=== PATIENT | male | born 1970 | race Caucasian/White ===

== ENCOUNTER 2017-09-18 02:25 | Observation (INO) ==
[2017-09-18] MEDS ORDERED: SALINE FLUSH 10ml SYRINGE IVF PRN (02:49)
--- NOTE | 2017-09-18 02:51 | Emergency Department Report ---
General Adult HPI - General Chief complaint: Abdominal Pain Stated complaint: sharp lower rt abd pain Time Seen by Provider: 09/18/17 02:41 Source: patient Mode of arrival: ambulatory Limitations: no limitations - History of Present Illness HPI narrative: 47-year-old male presents to the emergency department with the chief complaint of right lower quadrant abdominal pain. He noted onset of symptoms 1 day ago and symptoms have progressed throughout the day. He describes the pain as moderate. Pain is dull. No radiation. He does not note any exacerbating or remitting factors. No other complaints or associated symptoms. He was at home when his symptoms began. Symptoms have been persistent in nature since onset. Patient denies any trauma, travel, poorly prepared food, or recent antibiotic use. He has no other complaints or associated symptoms at this time. - Related Data Home Medications Medication Instructions Recorded Confirmed Docusate Sodium [Stool Softener] 100 mg PO DAILY #0 04/20/11 09/18/17 Escitalopram [Lexapro] 0.5 tab PO DAILY 09/18/17 09/18/17 Meloxicam 15 mg PO DAILY 09/18/17 09/18/17 Allergies Allergy/AdvReac Type Severity Reaction Status Date / Time Sulfa (Sulfonamide Allergy Severe HIVES Verified 09/18/17 05:51 Antibiotics) latex Allergy Intermediate Itching Verified 09/18/17 05:51 Review of Systems Constitutional: Denies: fever, chills Eyes: Denies: eye pain, vision change ENT: Denies: ear pain, throat pain Cardiovascular: Denies: chest pain, palpitations Respiratory: Denies: cough, dyspnea Gastrointestinal: Reports: abdominal pain. Denies: nausea, vomiting, diarrhea Genitourinary: Denies: urgency, dysuria Musculoskeletal: Denies: back pain, arthralgia Integumentary: Denies: erythema, rash Neurological: Denies: headache, numbness Psychiatric: Denies: anxiety, depression Endocrine: Denies: polydipsia, polyuria Hematological/Lymphatic: Denies: easy bruising, lymphadenopathy Allergic/Immunologic: Denies: facial swelling, urticaria PFSH Patient Stated Medical History Migraine Yes Depression Yes Surgical History: Hernia repair Family History: Reviewed and noncontributory. - Social History Smoking status: Never smoker Substance use type: does not use Alcohol intake frequency: does not drink Physical Exam - Limitations Limitations: no limitations - General General appearance: alert, in no apparent distress - Normal Exams: Head:: Normocephalic without trauma Eyes:: Pupils are PERRLA w/ EOMI, No scleral icterus, irritation, or foreign bodies noted ENMT:: No facial trauma, nasal exudates, pharyngeal erythema, or exudates are noted Dental: No fractured, loose, or missing teeth noted Neck:: Full range of motion, without adenopathy, JVD, bruits or thyromegaly Chest/Respirations:: Clear all burgess, with good airflow, and symmetry bilaterally Cardiovascular:: Regular rate and rhythm, without murmur or gallop, Pulses 2+ all extremities, capillary refill, <2 seconds all extremities Abdomen:: Bowel sounds positive (Soft. Moderate right lower quadrant tenderness to palpation without rebound or guarding. No CVAT.), non-distended, no hepatosplenomegaly, masses or bruits noted Lymphatic:: No lymphadenopathy, or lymphedema noted Musculoskeletal:: No tenderness, or deformity noted, good range of motion, all extremities Integumentary:: No rashes, hives, or bruising noted, hair and nails, without abnormality Neurological:: Patient is alert, and oriented, cranial nerves, motor/sensory/ cerebellar, exams w/o gross deficits, to observation Psychiatric:: Patient exhibits, appropriate attention, emotion and affect Course Vital Signs Temperature 98.5 F 09/18/17 02:31 Pulse Rate 94 09/18/17 02:31 Respiratory Rate 18 09/18/17 02:31 Blood Pressure 140/91 H 09/18/17 02:31 Pulse Oximetry 98 09/18/17 02:31 Temperature 98.5 F 09/18/17 02:31 Pulse Rate 80 09/18/17 06:16 Respiratory Rate 16 09/18/17 06:16 Blood Pressure 137/82 09/18/17 06:16 Pulse Oximetry 97 09/18/17 06:16 Medical Decision Making - [facility] Narrative Medical decision making narrative: Labs / imaging were discussed in detail with the patient and family and questions are answered. He is given gentle IV hydration. He is given parental narcotic and antiemetic medication intravenously with improvement of symptoms. He is given Invanz 1 g intravenously. He is discussed with Dr. Wilder of Gen. surgery and accepted to his service for further evaluation and treatment. Patient is admitted to the hospital in improved condition. No further orders from accepting physician who is in agreement with the current plan of management. Patient is made nothing by mouth in the emergency department. - Differential Diagnosis kidney stone, appendicitis, UTI, metabolic disorder - Lab Data Result diagrams: 09/18/17 03:32 09/18/17 03:32 Lab Results 09/18/17 09/18/17 09/18/17 Range/Units 03:32 03:32 04:48 WBC 14.8 H (4.5-11.0) T/MM3 RBC 4.81 (4.50-5.90) M/MM3 Hgb 14.5 (13.5-17.5) GM/DL Hct 42.4 (41-53) % MCV 88.1 (80-100) UM3 MCH 30.1 (26-34) UUG MCHC 34.2 (31-37) GM/DL RDW Std Deviation 41.0 (36.9-50.2) FL Plt Count 188 (130-400) T/MM3 MPV 10.9 (9.4-12.4) UM3 Immature Gran % (Auto) 0.1 (0.0-0.5) % Neut % (Auto) 80.2 H (33-66) % Lymph % (Auto) 11.6 L (23-45) % [place] % (Auto) 6.8 (0-9.0) % Eos % (Auto) 1.0 (0-4) % Baso % (Auto) 0.3 (0-2) % Neut # (Auto) 11.9 H (1.8-7.7) T/MM3 Lymph # (Auto) 1.7 (1-4.8) T/MM3 [place] # (Auto) 1.0 H (0-0.8) T/MM3 Eos # (Auto) 0.2 (0-0.5) T/MM3 Baso # (Auto) 0.0 (0-0.2) T/MM3 Abs Immat Gran (auto) 0.02 (0.00-0.03) T/MM3 Turbidity < 20 (0-20) Sodium 141 (134-144) MEQ/L Potassium 4.0 (3.6-5) MEQ/L Chloride 103 (98-107) MEQ/L Carbon Dioxide 27 (22-30) MEQ/L Anion Gap 11 (5-15) meq/L BUN 17.0 (9-20) MG/DL Creatinine 0.8 (0.8-1.5) mg/dL GFR Calculation 104 BUN/Creatinine Ratio 21 (6-26) RATIO Glucose 103 (75-110) MG/DL Calculated Osmolality 273 (261-280) MOSM/KG Calcium 9.6 (8.4-10.2) MG/DL Total Bilirubin 0.40 (0.20-1.30) MG/DL Icterus Index < 2 (0-7) AST 23 (17-59) U/L ALT 20 (1-50) U/L Alkaline Phosphatase 71 (38-126) U/L Total Protein 7.2 (6.3-8.2) g/dL Albumin 4.4 (3.5-5.0) g/dL Globulin 2.8 (2.4-3.6) G/DL Albumin/Globulin Ratio 1.6 (1.1-2.2) RATIO Lipase 42 (23-300) U/L Specimen Hemolysis < 15 (0-25) Ur Collection Type Urine, void-cc/notcc Urine Color Yellow (YELLOW) Urine Clarity Clear Urine pH 5.5 (5.0-8.0) Ur Specific [place] 1.025 (1.015-1.025) Urine Protein Negative (NEGATIVE) Urine Glucose (UA) Negative (NEGATIVE) Urine Ketones Negative (NEGATIVE) Urine Occult Blood Negative (NEGATIVE) Urine Nitrate Negative (NEGATIVE) Urine Bilirubin Negative (NEGATIVE) Urine Urobilinogen 0.2 (NORMAL) EU/DL Ur Leukocyte Esterase Negative (NEGATIVE) Urinalysis Comment Microscopic not ind. - Radiology Data CT abdomen/pelvis: Acute appendicitis. Associated appendicoliths. No drainable fluid collection. No free air. Disposition Clinical Impression: Acute appendicitis Qualifiers: Acute appendicitis type: other Qualified Code(s): K35.89 - Other acute appendicitis Disposition: 02 To [facility] Condition: Improved Prescriptions: No Action Docusate Sodium [Stool Softener] 100 mg PO DAILY #0 Meloxicam 15 mg PO DAILY Escitalopram [Lexapro] 0.5 tab PO DAILY Referrals: Eric Maher MD [Primary Care Provider] - Time of Disposition: 05:00 - Seen By: physician
[2017-09-18] MEDS ORDERED: ONDANSETRON 4 MG/2 ML INJECTION IVP ONE (04:59)
[2017-09-18] MEDS ORDERED: FentaNYL 100 MCG/2 ML INJECTION IVP ONE (04:59)
[2017-09-18] MEDS ORDERED: ERTAPENEM 1 G in NS 100 ML IV ONE (05:24)
[2017-09-18 06:58] VITALS: BMI 24.0
--- NOTE | 2017-09-18 07:57 | CT Scan Report ---
Indication: RLQ PAIN PROCEDURE: CT abdomen pelvis wo con: Encounter: Initial Comparison: None Technique: Axial CT images were performed through the abdomen and pelvis without intravenous contrast. Coronal and sagittal two-dimensional reformats. Automated Exposure Control and Iterative Reconstruction dose reducing techniques were utilized. Findings: The lung bases are clear. The unenhanced contours of the liver are unremarkable. The gallbladder is normal. The spleen, pancreas and adrenal glands are within normal limits. Small bilateral nonobstructing renal stones. No renal stones. Numerous pelvic phleboliths. Bladder is normal. No free fluid. No evidence of a bowel obstruction. There is what appears to be an enlarged mildly inflamed appendix in the right lower quadrant measuring 1.2 cm in diameter containing an appendicolith best seen on axial image #57 and coronal image #18. Bone windows show no acute findings. No free air or free fluid. Impression: Acute appendicitis. Emergent surgical consultation is recommended. There is a preliminary report by [facility]. .
[2017-09-18] MEDS ORDERED: MORPHINE SULFATE 2mg INJ IVP PRN (09:56)
[2017-09-18] MEDS ORDERED: METOCLOPRAMIDE 10mg/2ml INJECTION IVP PRN (09:56)
[2017-09-18] MEDS ORDERED: ONDANSETRON 4 MG/2 ML INJECTION IVP PRN (09:56)
[2017-09-18] MEDS: LR 1,000 ML IV SCH ×3 (10:30→22:29)
[2017-09-18] MEDS ORDERED: MORPHINE SULFATE 4mg INJECTION IVP PRN (12:45)
[2017-09-18] MEDS ORDERED: BUPIVACAINE 0.25%/EPI 1:200,000 30ml SDV ONE (13:23)
[2017-09-18] MEDS ORDERED: LIDOCAINE 1% (10mg/ml) 30ml SDV INJ ONE (13:23)
--- NOTE | 2017-09-18 14:03 | Anesthesia Preoperative Report ---
Anesthesia Preoperative Record - Date and Time Date: 09/18/17 Preoperative Diagnosis: acute appendicitis Proposed Procedure: lap appy NPO Since Date: 09/17/17 NPO Since Time: 23:00 Allergies/Adverse Reactions: Allergies Allergy/AdvReac Type Severity Reaction Status Date / Time Sulfa (Sulfonamide Allergy Severe HIVES Verified 09/18/17 05:51 Antibiotics) sulfamethoxazole Allergy Severe Hives Verified 09/18/17 07:03 [From Bactrim] trimethoprim [From Bactrim] Allergy Severe Hives Verified 09/18/17 07:03 latex Allergy Intermediate Itching Verified 09/18/17 05:51 - Vital Signs Vital Signs: Temperature 97.5 F 09/18/17 13:29 Pulse Rate 74 09/18/17 13:29 Respiratory Rate 16 09/18/17 13:29 Blood Pressure 141/85 H 09/18/17 13:29 Pulse Oximetry 99 09/18/17 13:29 Height and Weight: Height 1.78 m Weight 76 kg Body Mass Index 24.0 - Medications Inpatient Medications: Current Medications Lactated Ringer's (Lactated Ringers) 1,000 mls @ 100 mls/hr IV .Q10H KASSIDY Last Infusion: 09/18/17 13:25 Dose: 100 mls/hr Metoclopramide HCl (Reglan) 10 mg IVP Q6H PRN Last Admin: 09/18/17 12:33 Dose: 10 mg Morphine Sulfate (Morphine Sulfate Inj) 1 - 2 mg IVP Q3H PRN PRN Reason: Pain Last Admin: 09/18/17 12:48 Dose: 2 mg Ondansetron HCl (Zofran) 4 mg IVP Q6H PRN PRN Reason: Nausea &/or vomiting Sodium Chloride (Iv Flush) 10 - 80 ml IVF PRN PRN PRN Reason: Flushing Last Admin: 09/18/17 05:15 Dose: 10 ml Home Medications: Home Medications Medication Instructions Recorded Confirmed Type Docusate Sodium [Stool Softener] 100 mg PO DAILY #0 04/20/11 09/18/17 History Escitalopram [Lexapro] 0.5 tab PO DAILY 09/18/17 09/18/17 History Meloxicam 15 mg PO DAILY 09/18/17 09/18/17 History - Medical History Respiratory: DENIES: Sleep Apnea Gastrointestional: Reports: Other (constipation) Neuro/Musculoskeletal: Reports: Depression - Surgical History HEENT Surgeries: Reports: Oral Surgery (wisdom) GI Surgery/Treatments: Reports: Hernia Repair, Colonoscopy, Other (hemorrhoid repair) Anesthesia Reactions: None Hx Family Anesthesia Reaction: No - Social History Smoking Status: Never smoker Substance Use Type: does not use Alcohol Intake Frequency: does not drink - Pertinent Findings EKG: Sinus Rhythm - Physical Exam Respiratory Exam: Present: lungs clear, bilateral breath sounds equal Cardiovascular Exam: Present: regular rate and rhythm, no murmur - Airway Assessment Mallampati Score: I TMD: 3 Fingerbreadths Neck Extension: good Overall Assessment: no airway concerns - ASA ASA Score: 1, E - Plan Anesthesia: General Inhalation Gases - Discussion Discussion: Discussed risks/options/alternatives of anesthesia and questions answered. Patient consents. Nursing pain assessment noted. Attestation Statement: Prior to the delivery of any anesthetic medication, I examined the patient, developed the plan, obtained the patient's consent and discussed the risk and benefits of the procedure with the patient/guardian. - Additional Information Seen by Anesthesia: Yes
[2017-09-18] MEDS ORDERED: FentaNYL 250 MCG/5 ML INJECTION ONE (14:16)
[2017-09-18] MEDS ORDERED: ROCURONIUM 50 MG/5 ML INJECTION IVP ONE (14:17)
[2017-09-18] MEDS ORDERED: PROPOFOL 20 ML ONE ×2 (14:17→14:18)
[2017-09-18] MEDS ORDERED: LIDOCAINE 4% Laryng-O-Jet (160mg/4mL) KIT MM ONE (14:17)
[2017-09-18] MEDS ORDERED: DEXAMETHASONE 4 MG/ML INJECTION ONE (14:24)
[2017-09-18] MEDS ORDERED: ONDANSETRON 4 MG/2 ML INJECTION ONE (14:24)
[2017-09-18] MEDS: LIDO 1% 30ml/BUPIV 0.25%-EPI 1:200T 30ml MIXTURE (60ml total) ID ONE (14:34)
[2017-09-18] MEDS ORDERED: AMIODARONE 150 MG in NS 100 ML IV PRN (14:57)
--- NOTE | 2017-09-18 15:36 | General Surgery Procedure Note ---
Date of Procedure: 09/18/17 Surgeon: Roopa Anesthesia: General Inhalation Gases ASA Score: 1, E Postoperative Diagnosis: Acute nonperforated appendicitis Procedure: Lap appy Estimated Blood Loss: See Anesthesia Record.
[2017-09-18] MEDS: FentaNYL 100 MCG/2 ML INJECTION IVP PRN ×2 (15:58→16:07)
--- NOTE | 2017-09-18 16:08 | Anesthesia Postoperative Note ---
- Date and Time Date: 09/18/17 Time: 15:40 - Status Patient Participated in Evaluation: Patient Participated in Person Vital Signs: Temperature 97.3 F 09/18/17 15:23 Pulse Rate 87 09/18/17 16:00 Respiratory Rate 16 09/18/17 16:00 Blood Pressure 136/84 09/18/17 16:00 Pulse Oximetry 99 09/18/17 16:00 Respiratory Function: Airway Patent Cardiovascular Function: Regular Pulse EKG: Sinus Rhythm EKG Ectopy: Occasional PVC Mental Status: Alert and Oriented Pain Intensity: 5 Hydration: IV Infusing Complications During Recover: None Apparent Post Anesthesia Care Notes: Dr. Moreau is speaking with Dr. Maher about a cardiology consult due to frequent PVCs. Pt stable in post op and only having occasional pvc which is the pts normal previuos to surgery. Pt to be on telemetry until consult clears pt. - Follow-Up Instructions Instructions: Per Surgeon
[2017-09-18] MEDS ORDERED: KETOROLAC 30 MG/ML INJECTION IVP PRN (16:43)
--- NOTE | 2017-09-18 17:52 | History and Physical ---
REASON FOR ADMISSION Suspected appendicitis. HISTORY OF PRESENT ILLNESS Jacques is a 47-year-old male who began to have abdominal pain yesterday morning. He stated his pain started across the entire lower abdomen. The pain was sharp and burning in nature. It was constant. By 10:30 last evening, the pain was more intense and so he came to the emergency department. Emergency department workup showed a white blood cell count of 14.8. A CT scan of the abdomen and pelvis was performed and did reveal some periappendiceal inflammation along with a dilated appendix. The patient was given morphine and his pain did improve with the pain medication. Movement still makes the pain worse. The patient does feel like his pain has improved and he is currently hungry. He had received Invanz in the emergency department once the suspicion of appendicitis was raised. PAST MEDICAL HISTORY 1. Depression. 2. Migraine headaches - occasionally. PAST SURGICAL HISTORY 1. Left inguinal hernia repair with mesh - 04/20/[address] Ball. 2. Colonoscopy - 04/10/[address] Eric Maher. Colonoscopy was performed to investigate hematochezia. It was normal except for a large external hemorrhoid. Repeat was recommended in 10 years. ALLERGIES BACTRIM, LATEX. MEDICATIONS The patient's home medications were reviewed. See the admission medication reconciliation. SOCIAL HISTORY The patient is . He and his have four children. He denies any history of tobacco use. He denies alcohol and drug use. FAMILY HISTORY 1. Mother - brain tumor. 2. Father - kidney cancer with metastases to the lungs. 3. Sister - breast cancer, thyroid cancer. 4. Paternal aunt - lung cancer. 5. Paternal grandmother - brain tumor. 6. Paternal aunt - breast cancer. 7. Daughter - diabetes mellitus. REVIEW OF SYSTEMS 10-point review of systems was negative except for History of Present Illness and the following. GENERAL: He has had some chills with this episode. NEUROLOGIC: He reports a current headache. RESPIRATORY: He reports some cough lately. GASTROINTESTINAL: He has had chronic constipation. MUSCULOSKELETAL: He reports some chronic left knee pain. LABORATORY DATA White blood cell count 14.8. IMAGING CT scan the abdomen and pelvis was personally reviewed by me. There is a dilated appendix containing an appendicolith with some surrounding inflammation. PHYSICAL EXAMINATION VITAL SIGNS: Temperature 96.6, pulse 76, blood pressure 126/84, respiratory rate 16, oxygen saturation 95% on room air. GENERAL: The patient is awake and alert. He is lying in bed in no acute distress. HEENT: Sclerae clear. Extraocular muscles intact. NECK: Supple with a midline trachea. No lymphadenopathy or thyromegaly are noted. HEART: Regular rate and rhythm. LUNGS: Clear to auscultation bilaterally. ABDOMEN: Soft, tender in the right lower quadrant with a mild Rovsing's sign. No guarding is noted. No masses or fluid are noted. EXTREMITIES: No clubbing, cyanosis or edema. NEURO: Cranial nerves II-XII are grossly intact. PSYCHIATRIC: Normal mood and affect. IMPRESSION 1. Acute appendicitis. 2. Depression - chronic. PLAN 1. The patient has already received a dose of Invanz. 2. I did discuss management options for acute appendicitis with Jacques and his . I explained that I did not feel that antibiotic treatment alone would be prudent given the presence of the appendicolith. I therefore recommended laparoscopic appendectomy to him. Following discussion of the procedure, he did wish to proceed with the operation. 3. N.p.o. until surgery. 4. IV fluids. PATIENT EDUCATION The details, risks and benefits of laparoscopic appendectomy were discussed with the patient and his . The discussion included, but was not limited to , bleeding, infection, intraabdominal abscess formation possibly requiring interventional radiology drainage or additional procedures, injury to intraabdominal contents requiring repair, possible negative appendectomy, possible conversion to an open procedure, and complications of anesthesia. He voiced understanding and did wish to proceed with the operation today. ANA MARIA
[2017-09-18] MEDS: HYDROCODONE/APAP 5mg/325mg TABLET PO PRN ×2 (18:00→20:15)
[2017-09-19] MEDS: HYDROCODONE/APAP 5mg/325mg TABLET PO PRN ×3 (00:01→13:21)
[2017-09-19] MEDS: LR 1,000 ML IV SCH ×2 (00:13→05:33)
[2017-09-19 04:31] VITALS: RESP 14
[2017-09-19 07:33] VITALS: TEMP 96.4
--- NOTE | 2017-09-19 07:41 | Cardiology Consult Note ---
History of Present Illness Consult date: 09/18/17 Requesting physician: Mir Blas Consult reason: post-op evaluation Chief complaint: abdominal pain History of present illness: Jacques is a 47 year old male patient of Dr. Blas who underwent appendectomy yesterday after presenting to the ED with abdominal pain across the entire lower abdomen which was sharp and burning in nature. CT scan of the abdomen and pelvis revealed some periappendiceal inflammation along with a dilated appendix. During the surgical procedure he had a 5 beat run of nonsustained ventricular tachycardia and Dr. Garay is consulted for further evaluation and we appreciate the consult. He is examined by Dr Garay this morning in his room on the Surgical unit. He reports incisional abdominal pain, but denies nausea and vomiting. 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 He denies palpitations, dizziness, lightheadedness or syncope. Review of Systems - Constitutional Constitutional: Absent: chills, fatigue, fever(s) - EENMT Eyes: Absent: change in vision Balance: Absent: vertigo Mouth/Throat: Absent: sore throat - Cardiovascular Cardiovascular: Absent: chest pain, palpitations, syncope, dyspnea on exertion, orthopnea, edema, heart murmur Rhythm: Absent: abnormal rhythm Vascular: Absent: pedal edema - Respiratory Respiratory: Absent: cough, dyspnea, dyspnea on exertion - Gastrointestinal Gastrointestinal: Present: abdominal pain. Absent: diarrhea, nausea, vomiting - Genitourinary Genitourinary: Absent: dysuria - Integumentary/Breasts Integumentary: Absent: rash - Neurological Neurological: Absent: dizziness - Endocrine Endocrine: Absent: palpitations PFSH Patient Stated Medical History Migraine Yes Sleep Apnea No Other GI Yes: constipation Depression Yes Surgical History: Appendectomy. Hernia repair Family History: Mother - brain tumor. Father - kidney cancer with metastases to the lungs. Sister - breast cancer, thyroid cancer. Paternal aunt - lung cancer. Paternal grandmother - brain tumor. Paternal aunt - breast cancer. Daughter - diabetes mellitus. 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 Current residence: Apartment/Private Home Medications Home Medications Medication Instructions Recorded Confirmed Type Docusate Sodium [Stool Softener] 100 mg PO DAILY #0 04/20/11 09/18/17 History Escitalopram [Lexapro] 0.5 tab PO DAILY 09/18/17 09/18/17 History Meloxicam 15 mg PO DAILY 09/18/17 09/18/17 History Allergies Allergy/AdvReac Type Severity Reaction Status Date / Time Sulfa (Sulfonamide Allergy Severe HIVES Verified 09/18/17 05:51 Antibiotics) sulfamethoxazole Allergy Severe Hives Verified 09/18/17 07:03 [From Bactrim] trimethoprim [From Bactrim] Allergy Severe Hives Verified 09/18/17 07:03 latex Allergy Intermediate Itching Verified 09/18/17 05:51 metoclopramide [From Reglan] AdvReac Severe Tardive Verified 09/18/17 17:14 Dyskinesia Exam Vital signs: Temperature 96.4 F L 09/19/17 07:32 Pulse Rate 96 09/19/17 07:32 Respiratory Rate 14 09/19/17 07:32 Blood Pressure 133/86 09/19/17 07:32 Pulse Oximetry 96 09/19/17 07:32 - Constitutional no acute distress, well nourished, cooperative - Routine HEENT Exam Head: Present: normocephalic ENT: Present: mucous membranes moist - Routine Neck Exam Absent: JVD, carotid bruit - Routine Chest/Breast/Axilla Exam Chest wall: Absent: tenderness - Routine Respiratory Exam Present: CTA bilaterally. Absent: rales, wheezes - Routine Cardiovascular Exam Present: RRR, no murmur - Routine Abdominal Exam Present: soft, non tender - Routine Extremities Exam Present: no edema - Routine Skin Exam Present: intact, dry, warm - Routine Neurological Exam Present: alert, oriented X3 - Routine Psychiatric Exam Present: normal affect, normal thought process Results 09/18/17 03:32 09/18/17 03:32 Intake and Output 09/18/17 09/19/17 09/19/17 22:59 06:59 14:59 Intake Total 975 / 975 750 / 750 Output Total 750 / 750 550 / 550 Balance 225 / 225 200 / 200 Intake: IV 975 / 975 750 / 750 Lr 1,000 ml @ 100 mls/hr IV . 975 / 975 750 / 750 Q10H KASSIDY Rx#:[id number] Output: Urine 600 / 600 550 / 550 Urine Amount (Catheter) 150 / 150 Urethral 150 / 150 Other: Urine Appearance Clear Clear Urine Color Yellow Yellow Weight 167 lb 8.821 oz Patient Weight 09/20/17 06:59 Weight 167 lb 8.821 oz - Imaging and Cardiology Imaging & Cardiology Narrative: Date of Exam: 09/18/17 Ordering Provider: Bigg Hope DO Type of Exam(s): CT abdomen pelvis wo con Reason for Exam(s): RLQ PAIN Indication: RLQ PAIN PROCEDURE: CT abdomen pelvis wo con: Encounter: Initial Comparison: None Technique: Axial CT images were performed through the abdomen and pelvis without intravenous contrast. Coronal and sagittal two-dimensional reformats. Automated Exposure Control and Iterative Reconstruction dose reducing techniques were utilized. Findings: The lung bases are clear. The unenhanced contours of the liver are unremarkable. The gallbladder is normal. The spleen, pancreas and adrenal glands are within normal limits. Small bilateral nonobstructing renal stones. No renal stones. Numerous pelvic phleboliths. Bladder is normal. No free fluid. No evidence of a bowel obstruction. There is what appears to be an enlarged mildly inflamed appendix in the right lower quadrant measuring 1.2 cm in diameter containing an appendicolith best seen on axial image #57 and coronal image #18. Bone windows show no acute findings. No free air or free fluid. Impression: Acute appendicitis. Emergent surgical consultation is recommended. There is a preliminary report by [facility]. 09/19/17 07:41 EKG interpretations - EKG EKG results cardiology: sinus rhythm - Blocks, axis, hypertrophy, ST abn Chamber hypertrophy or enlargement: left atrial enlargement or conduction defect Assessment and Plan - Assessment and Plan (1) NSVT (nonsustained ventricular tachycardia) Current visit: Yes Status: Acute 5 Beat run intraoperatively - Denies history of arrhythmia, chest pain, syncope - Start Metoprolol 12.5mg BID - 2D echo report pending - Follow up with Dr. Garay on SundayOctober 05 at 9:00 for outpatient work up/ Holter monitor (2) Status post appendectomy Current visit: Yes Status: Acute - Assessment and Plan NSVT: 5 Beat run intraoperatively - Denies history of arrhythmia, chest pain, syncope - Start Metoprolol 12.5mg BID - 2D echo report pending - Follow up with Dr. Garay on SundayOctober 05 at 9:00 for outpatient work up/ Holter monitor. Thank you for allowing us to participate in the care of this patient. Hospital Course Summary Disclaimer: The visit summary below is not to be considered part of the above Progress Note.
--- NOTE | 2017-09-19 11:12 | Operative Note ---
DATE OF OPERATION 09/18/2017 Surgeon Mir Blas MD PREOPERATIVE DIAGNOSIS Acute appendicitis. POSTOPERATIVE DIAGNOSIS Acute nonperforated appendicitis. PROCEDURE Laparoscopic appendectomy. ANESTHESIA General. ASA CLASS 1E INDICATIONS The patient is a 47-year-old male who presented to the emergency department after the onset of abdominal pain yesterday morning. Emergency department workup showed an elevated white count of 14.[address] scan consistent with appendicitis. He was admitted to the hospital and following discussion he did wish to proceed with laparoscopic appendectomy. FINDINGS The appendix was dilated and inflamed at the base of the appendix. There was no evidence of perforation. No other abnormalities were noted within the abdomen. The Marlex plug from his left inguinal hernia repair was visualized, but there was no evidence of hernia recurrence. DESCRIPTION OF PROCEDURE After informed consent was obtained the patient was taken to the operating room and placed in supine position. General anesthesia was administered by the anesthesia team. The patient's abdomen was then prepped and draped in the usual sterile fashion. Local was injected just superior to the umbilicus and a small skin incision was made. The umbilicus was elevated with a penetrating towel clip. A Veress needle was inserted and was used to obtain pneumoperitoneum. A 5 mm port was then placed followed by an angled laparoscope. The laparoscope was used to guide placement of an additional 5 mm port in the suprapubic region and a 12 mm port in the left lower quadrant. Both of these ports were placed under direct vision after the skin and fascia were anesthetized with local. The appendix was then exposed in the right lower quadrant. A window was made in the mesoappendix using a [place] dissector. The laparoscopic stapler was then used to divide the base of the appendix. A vascular reload of the laparoscopic stapler was used to divide the mesoappendix. The appendix was then placed within an endoscopic retrieval bag. It was removed from the left lower quadrant port site. The port was replaced on the right lower quadrant and was irrigated and suctioned free of fluid. Hemostasis along the staple lines was assured. The staple lines were intact. The fascia of the left lower quadrant port site was closed with a figure-of- eight stitch of 0 Vicryl suture using a laparoscopic suture passer. The suprapubic port was removed under direct vision with the laparoscope. Pneumoperitoneum was evacuated and the umbilical port was removed. The tissue below the umbilical entry site had been inspected and there was no evidence of injury from laparoscopic entry. All of the skin incisions were closed with buried interrupted 4-0 Monocryl stitches. Benzoin, Steri-Strips and sterile Band-Aids were applied as a dressing. During the procedure the patient did have some beats of ventricular tachycardia. These resolved spontaneously, but the plan is to consult Cardiology following the procedure. ANA MARIA
[2017-09-19 11:24] VITALS: BP 132/86; PULSE 71; O2SAT 100
--- NOTE | 2017-09-19 14:00 | Echocardiogram ---
DATE OF PROCEDURE September 18, 2017 REFERRING PHYSICIAN Mir Blas MD This is a two-dimensional echo with spectral Doppler, color-flow and M-mode. It was obtained in a patient with arrhythmias. Left atrial dimension is normal. Left ventricular end-diastolic dimension is normal. Left ventricle wall thickness mildly increased. LV systolic function is normal with ejection fraction of 67%. Right atrium is normal. Right ventricle is normal. Aortic root dimension is normal. Mitral valve is morphologically normal with mild mitral regurgitation. Aortic valve is a trileaflet structure with mild fibrocalcific changes with no stenosis. Mild aortic insufficiency is present. Tricuspid valve shows mild tricuspid regurgitation with normal estimated pulmonary artery systolic pressure of 28. Pulmonary valve shows no pulmonary insufficiency. There is no pericardial effusion. IMPRESSION 1. Normal LV systolic function with ejection fraction of 67%. 2. Concentric left ventricular hypertrophy. 3. Mild mitral regurgitation. 4. Mild aortic sclerosis with mild aortic insufficiency. 5. Mild tricuspid regurgitation with normal estimated pulmonary artery systolic pressure of 28. MTDD
--- NOTE | 2017-09-20 08:25 | Progress Note ---
DATE OF VISIT 09/19/2017 REASON FOR VISIT Postoperative followup. KATIANA Hanna has done well overnight. His pain has been controlled with pills. He is tolerating his diet. He had his cardiology consultation this morning and Cardiology's plan is to initiate b.i.d. metoprolol and follow up in clinic. His final echocardiogram report is not yet available. OBJECTIVE VITAL SIGNS: Afebrile with stable vitals on room air. GENERAL: The patient is awake, alert, in no acute distress. ABDOMEN: Soft, appropriately tender. His incisions are clean, dry and intact. IMPRESSION 1. Postop day #1 status post laparoscopic appendectomy - doing well. 2. Short episode of ventricular tachycardia - resolved, no recent arrhythmias. PLAN 1. Appreciate Cardiology input and consultation. 2. Dismiss home with new prescription for metoprolol for 1 month. 3. Follow up with Cardiology as directed. 4. See discharge instructions. ANA MARIA
== END 2017-09-19 13:30 | disposition home or self-care (01) ==
LOC: ED 02:25 → SRG 02:25
PROVIDERS: ADMIT Surgery; ATTEND Surgery